=== PATIENT | male | born 2000 | race Caucasian/White ===

== ENCOUNTER 2021-07-09 18:44 | Emergency (ER) | payer BC ==
[2021-07-09 19:03] VITALS: BP 138/78; PULSE 85; RESP 18; TEMP 98.2
[2021-07-09] MEDS ORDERED: GELATIN SPONGE,ABSORB (LARGE) 1 EACH SPONGE TOPICAL STA (21:53)
--- NOTE | 2021-07-09 22:10 | ED ---
General Adult HPI - General Chief complaint: Wound/Laceration Stated complaint: Finger Lac Time Seen by Provider: 07/09/21 19:17 Source: patient Mode of arrival: ambulatory Limitations: no limitations - History of Present Illness Initial comments: This 21-year-old male presents emergency Department with right hand index finger skin avulsion. Patient states he was dicing potatoes at home when the knife slipped and sliced into his finger. Patient states he is up-to-date on his tetanus shot. He denies being on any blood thinners. Patient states the area slightly fisher but he denies any loss of sensation or range of motion. Patient denies any chest pain, shortness of breath, abdominal pain, nausea, vomiting, change in bowel or bladder, change in vision, lightheadedness, dizziness, headache - Related Data Allergies Allergy/AdvReac Type Severity Reaction Status Date / Time No Known Allergies Allergy Verified 07/09/21 19:01 Review of Systems ROS Statement: Those systems with pertinent positive or pertinent negative responses have been documented in the HPI. ROS Other: All systems not noted in ROS Statement are negative. Past Medical History Past Medical History: No Reported History History of Any Multi-Drug Resistant Organisms: None Reported Past Surgical History: No Surgical Hx Reported Past Psychological History: No Psychological Hx Reported Smoking Status: Current every day smoker Past Alcohol Use History: None Reported General Exam Limitations: no limitations General appearance: alert, in no apparent distress Head exam: Present: atraumatic, normocephalic, normal inspection Eye exam: Present: normal appearance, PERRL, EOMI. Absent: scleral icterus, conjunctival injection, periorbital swelling ENT exam: Present: normal exam, mucous membranes moist Neck exam: Present: normal inspection, full ROM. Absent: tenderness, meningismus, lymphadenopathy Respiratory exam: Present: normal lung sounds bilaterally. Absent: respiratory distress, wheezes, rales, rhonchi, stridor Cardiovascular Exam: Present: regular rate, normal rhythm, normal heart sounds. Absent: systolic murmur, diastolic murmur, rubs, gallop, clicks GI/Abdominal exam: Present: soft, normal bowel sounds. Absent: distended, tenderness, guarding, rebound, rigid Extremities exam: Present: full ROM, normal capillary refill. Absent: normal inspection (Patient with less than 0.5 cm skin avulsion to tip of right hand index finger. No bleeding present. No loss of sensation or range of motion. Ulnar and radial pulses palpable bilaterally.), tenderness, pedal edema, joint swelling, calf tenderness Back exam: Present: full ROM Neurological exam: Present: alert, oriented X3, CN II-XII intact Psychiatric exam: Present: normal affect, normal mood Skin exam: Present: warm, dry, intact (Skin avulsion right hand tip of pointer finger), normal color. Absent: rash Course Vital Signs 07/09/21 19:01 Temperature 98.2 F Pulse Rate 85 Respiratory 18 Rate Blood Pressure 138/78 O2 Sat by Pulse 98 Oximetry Medical Decision Making - Medical Decision Making This 21-year-old male presents to the emergency department with right hand pointer finger skin avulsion. Gelfoam applied. Bandage applied. Hemostasis obtained. Instructed patient to leave covered 12-24 hours. Instructed patient to not touch Gelfoam as it will sorb and fall off on its own. Strict return precautions were discussed. Informed patient to follow-up with his primary care provider next 1-2 days. Patient verbally agree to plan. Patient sent home in stable condition. Case discussed in detail my attending, . Disposition Clinical Impression: Avulsion of skin of finger Disposition: HOME SELF-CARE Condition: Stable Instructions (If sedation given, give patient instructions): Skin Avulsion (ED), Skin Adhesive Care (ED) Additional Instructions: Return to the emergency department with any new, worsening, or concerning symptoms. Is patient prescribed a controlled substance at d/c from ED?: No Referrals: Yonis Morelos DO [Primary Care Provider] - 1-2 days Time of Disposition: 22:08
== END 2021-07-09 22:21 | disposition home or self-care (01) ==
LOC: EC 18:44
DX: S61.200A Unspecified open wound of right index finger without damage to nail, initial encounter (principal); W26.0XXA Contact with knife, initial encounter; Y92.009 Unspecified place in unspecified non-institutional (private) residence as the place of occurrence of the external cause; F17.200 Nicotine dependence, unspecified, uncomplicated
CPT/HCPCS: 99282